=== PATIENT | male | born 1945 | race Caucasian/White ===

== ENCOUNTER → 2016-10-21 | Outpatient (CLI) | payer MEDICARE | LOC: GMAJ 12:01 | PROVIDERS: ATTEND Family Medicine | DX: E29.1 Testicular hypofunction (principal); E03.9 Hypothyroidism, unspecified ==

== ENCOUNTER → 2017-04-11 | Outpatient (CLI) | payer MEDICARE | LOC: GMAJ 10:34 | PROVIDERS: ATTEND Family Medicine | DX: E29.1 Testicular hypofunction (principal); E03.9 Hypothyroidism, unspecified ==

== ENCOUNTER → 2017-09-28 | Outpatient (CLI) | payer MEDICARE | LOC: GMAJ 11:31 | PROVIDERS: ATTEND Family Medicine | DX: E29.1 Testicular hypofunction (principal); E03.9 Hypothyroidism, unspecified; Z12.5 Encounter for screening for malignant neoplasm of prostate | CPT/HCPCS: 84403; 84443; G0103 ==

== ENCOUNTER 2017-11-14 12:00 | Day surgery (SDC) | payer MEDICARE ==
[~2017-11-14 12:00] MED LIST: TROP 1%/CYCLOPEN 1%/PHENYL 2% DROPS ONE
[2017-11-14] MEDS: PROPARACAINE 0.5% OPHTH SOL 15 ML BTTL RIGHT_EYE ONE ×2 (13:50→14:15)
[2017-11-14] MEDS ORDERED: MIDAZOLAM INJ 2 MG/2 ML VIAL ONE (13:51)
[2017-11-14] MEDS: TOBRAMYCIN SULF 0.3 % OPHT SOL 1 DROP RIGHT_EYE ONE ×2 (14:00→14:38)
[2017-11-14] MEDS ORDERED: BRIMONIDINE 0.2% OPHTH DROPS RIGHT_EYE ONE ×2 (14:28→14:38)
[2017-11-14] MEDS ORDERED: TOBRAMYCIN SULF 0.3 % OPHT SOL 1 DROP RIGHT_EYE ONE (14:28)
[2017-11-14] MEDS ORDERED: DEXAMETHASONE 0.1% OPHTH SOL 1 DROP RIGHT_EYE ONE ×2 (14:28→14:38)
[2017-11-14] MEDS ORDERED: LIDOCAINE 1% PF 2 ML AMP INJ ONE (14:58)
[2017-11-14 16:46] VITALS: BP 136/81; TEMP 98.2; O2SAT 95
== END 2017-11-14 15:25 | disposition home or self-care (01) ==
LOC: AMB 12:00
PROVIDERS: ATTEND Ophthalmology
DX: H25.11 Age-related nuclear cataract, right eye (principal); K21.9 Gastro-esophageal reflux disease without esophagitis; Z79.82 Long term (current) use of aspirin; Z79.899 Other long term (current) drug therapy
CPT/HCPCS: 00142; 66984; J2250

== ENCOUNTER 2017-11-28 05:20 | Day surgery (SDC) | payer MEDICARE ==
[2017-11-28] MEDS ORDERED: PROPARACAINE 0.5% OPHTH SOL 15 ML BTTL ONE (05:51)
[2017-11-28] MEDS ORDERED: TROP 1%/CYCLOPEN 1%/PHENYL 2% DROPS ONE (05:51)
[2017-11-28] MEDS ORDERED: MIDAZOLAM INJ 2 MG/2 ML VIAL ONE (09:35)
[2017-11-28] MEDS ORDERED: LIDOCAINE 1% PF 2 ML AMP INJ ONE (09:48)
[2017-11-28] MEDS ORDERED: DEXAMETHASONE 0.1% OPHTH SOL 1 DROP LEFT_EYE ONE ×2 (09:54→10:05)
[2017-11-28] MEDS ORDERED: BRIMONIDINE 0.2% OPHTH DROPS LEFT_EYE ONE ×2 (09:55→10:05)
[2017-11-28] MEDS ORDERED: TOBRAMYCIN SULF 0.3 % OPHT SOL 1 DROP LEFT_EYE ONE ×2 (09:55→10:05)
== END 2017-11-28 10:40 | disposition home or self-care (01) ==
LOC: AMB 05:20
PROVIDERS: ATTEND Ophthalmology
DX: H25.12 Age-related nuclear cataract, left eye (principal); Z79.82 Long term (current) use of aspirin; Z79.899 Other long term (current) drug therapy; Z88.0 Allergy status to penicillin; Z91.048 Other nonmedicinal substance allergy status; Z87.891 Personal history of nicotine dependence
CPT/HCPCS: 00142; 66984; J2250; V2787

== ENCOUNTER → 2017-12-01 | Outpatient (CLI) | payer MEDICARE ==
--- NOTE | 2017-12-02 09:42 | MRI ---
EXAM DESCRIPTION: Lumbar Spine w/o Contrast : Magnetic Resonance Imaging. CLINICAL HISTORY: LEFT SIDED SCIATICA COMPARISON: None. TECHNIQUE: Multiplanar, multiple standard sequences, non contrast MRI, lumbar spine. FINDINGS: L5-S1: Moderate disc space loss and desiccation. Posterior midline bright T2 signal and tiny bulge abutting the thecal sac. Mild canal narrowing. Minimal facet arthrosis bilaterally. Bilateral moderate foraminal narrowing. L4-5: Disc desiccation and grade 1 anterolisthesis. Posterior flavum ligament hypertrophy and facet arthrosis with AP canal diameter 7 mm. Mild canal narrowing on the left moderate on the right. Posterior broad-based 4 mm disc bulge. Bilateral subarticular recess narrowing. L3-4: Disc desiccation and disc space maintained. Posterior broad-based 4 mm disc bulge. Mild canal narrowing. Bilateral flavum ligament hypertrophy. Bilateral mild foraminal narrowing. L2-3: Disc desiccation disc space maintained. Minimal flavum ligament hypertrophy. Canal is patent. Bilateral foramina are patent. L1-2: Marked disc space loss and Modic type I endplate reactive changes with anterior disc bulging and endplate spurs. Schmorl's nodes in the endplates. Desiccated signal in the disc. Marrow edema extending into the central marrow at L1. Anterior soft tissue edema. Posterior broad-based 4 mm disc bulge and moderate canal narrowing with minimal flavum ligament hypertrophy. Marrow edema abutting the left posterior endplates. Bilateral disc bulge into the foramina with moderate narrowing; spur disc bulge on left With near stenosis T12-L1: Disc desiccation minimal disc space loss with no posterior bulging but bright T2 signal in the posterior disc margin. Posterior elements are unremarkable. Canal and foramina are patent. Conus terminates at this level. No scoliosis. Paravertebral soft tissues mildly prominent around the L1-2 disc space but otherwise age-related paraspinal muscle atrophy. Normal marrow signal in the remaining vertebral bodies and the posterior elements. Ts. Vertebral bodies are not compressed at any level. IMPRESSION: 1. Modic type I endplate reactive changes and acute spondylitis at L1-2 with marrow edema extending into the central and upper L1 vertebral body. Edema in the Schmorl's nodes and in the posterior left side endplates. Near stenosis of the left foramen. Anterior and anterolateral paraspinal soft tissue edema. Correlate for left L1 radiculopathy. Discitis not likely. Correlate for inflammatory process with ESR and C-reactive protein measurements. Correlate for recent trauma. 2. Moderate disc space loss L5-S1 bilateral moderate foraminal narrowing and minimal canal narrowing. Disc bulge. 3. Posterior broad-based L3-4 disc bulge with canal and foraminal narrowing. 4. Grade 1 anterolisthesis L4-5. Moderate central canal stenosis. Bilateral foraminal narrowing more on the right. Subarticular recess narrowing bilaterally. Correlate for L5 radiculopathy. Electronically signed by: Rajeev Butler MD 12/02/2017 9:40 AM CDT
== END ==
LOC: MRI 09:56
PROVIDERS: ATTEND Family Medicine
DX: M54.32 Sciatica, left side (principal); M51.26 Other intervertebral disc displacement, lumbar region

== ENCOUNTER → 2018-09-01 | Outpatient (CLI) | payer MEDICARE ==
--- NOTE | 2018-09-01 17:21 | CT ---
EXAM DESCRIPTION: Chest w/o Contrast CLINICAL HISTORY: 73 years Male, ACUTE EXACERBATION OF COPD COMPARISON: None available TECHNIQUE: Contiguous thin section axial images were obtained from the supraclavicular region to below the diaphragm level without the use of intravenous contrast. Sagittal and coronal reconstructions were reviewed. FINDINGS: The visualized thyroid gland appears grossly unremarkable. No enlarged axillary, supraclavicular, mediastinal or hilar lymphadenopathy. The heart size appears within normal limits. No pericardial effusion. Moderate atherosclerotic calcifications of the aortic arch noted. The tracheobronchial tree is patent. Review of the lung windows demonstrate moderate to severe emphysematous changes predominantly involving the upper lobes. No acute consolidation or pleural effusion. Multiple focal groundglass changes in the superior segment of the right lower lobe concerning for underlying infectious/inflammatory etiology. Bilateral biapical scarring is noted. No suspicious nodules or abnormal mass lesions identified. The esophagus appears grossly normal throughout its length. The visualized upper abdomen appears grossly unremarkable. Review of the bone windows demonstrate no acute osseous abnormality. IMPRESSION: 1. Multiple focal groundglass changes in the superior segment of right lower lobe concerning for underlying infection/pneumonia. No acute consolidation or pleural effusion. This exam was performed according to our departmental dose-optimization program, which includes automated exposure control, adjustment of the mA and/or kV according to patient size and/or use of iterative reconstruction technique. Electronically signed by: Chase Pugh MD 09/01/2018 5:18 PM ADJUNCT FACULTY FOR MEDICAL TERMINOLOGY
== END ==
LOC: CT 10:31
PROVIDERS: ATTEND Family Medicine
DX: J44.1 Chronic obstructive pulmonary disease with (acute) exacerbation (principal)

== ENCOUNTER → 2019-05-21 | Outpatient (CLI) | payer MEDICARE | LOC: GMAJ 10:52 | PROVIDERS: ATTEND Family Medicine | DX: E29.1 Testicular hypofunction (principal); E11.9 Type 2 diabetes mellitus without complications; E03.9 Hypothyroidism, unspecified; E78.2 Mixed hyperlipidemia ==

== ENCOUNTER → 2019-08-13 | Outpatient (CLI) | payer MEDICARE | LOC: GMAJ 10:45 | PROVIDERS: ATTEND Family Medicine | DX: Z12.5 Encounter for screening for malignant neoplasm of prostate (principal); E03.9 Hypothyroidism, unspecified; E11.9 Type 2 diabetes mellitus without complications; E78.00 Pure hypercholesterolemia, unspecified; E29.1 Testicular hypofunction | CPT/HCPCS: 84403; 84443; G0103 ==

== ENCOUNTER → 2019-12-18 | Outpatient (CLI) | payer MEDICARE | LOC: GMAJ 11:13 | PROVIDERS: ATTEND Family Medicine | DX: E03.9 Hypothyroidism, unspecified (principal); E11.9 Type 2 diabetes mellitus without complications; E78.00 Pure hypercholesterolemia, unspecified ==

== ENCOUNTER → 2020-02-06 | Outpatient (CLI) | payer MEDICARE ==
--- NOTE | 2020-02-06 19:28 | CT ---
EXAM: Chest w/Contrast CLINICAL HISTORY: PULMONARY NODULE COMPARISON STUDY: CT chest from September 01, 2018 TECHNICAL: Post contrast CT images were performed through the chest. Sagittal and coronal reconstructions were acquired. FINDINGS: Soft tissue or mediastinal windows demonstrate no mass or lymphadenopathy. The heart is not enlarged. The aorta is non-dilated. There is no sign of an aortic dissection. The pulmonary arterial system as imaged is negative. The limited images of the upper abdomen are negative. Pulmonary parenchymal windows show no mass, consolidation, interstitial pulmonary edema, or pleural effusion. Mild diffuse emphysematous changes are present. There are chronic appearing dependent fibrotic changes within the apices. There is severe degenerative disc changes at L1-2, unchanged. IMPRESSION: 1. Mild diffuse emphysematous changes of the lungs with no mass or nodule. No lymphadenopathy. This exam was performed according to our departmental dose-optimization program, which includes automated exposure control, adjustment of the mA and/or kV according to patient size and/or use of iterative reconstruction technique. Electronically signed by: Anatoly Trent MD 02/06/2020 7:27 PM CDT
== END ==
LOC: CT 14:40
PROVIDERS: ATTEND Family Medicine
DX: J43.9 Emphysema, unspecified (principal)

== ENCOUNTER 2020-04-07 05:51 | Day surgery (SDC) | payer MEDICARE ==
[2020-04-07] MEDS ORDERED: LIDOCAINE 1% 10 ML VIAL INJ ONE ×2 (07:28→10:19)
[2020-04-07] MEDS ORDERED: BUPIVACAINE 0.5% 30 ML VIAL INJ ONE ×2 (07:28→10:19)
[2020-04-07] MEDS ORDERED: BETAMETHASONE ACETATE/BETAMETH 6 MG/ML VIAL IM ONE ×2 (10:19→10:35)
== END 2020-04-07 11:00 | disposition home or self-care (01) ==
LOC: AMB 05:51
PROVIDERS: ATTEND Family Medicine Sports Medicine
DX: M47.896 Other spondylosis, lumbar region (principal); M51.36 Other intervertebral disc degeneration, lumbar region; M48.061 Spinal stenosis, lumbar region without neurogenic claudication; M54.5 Low back pain; M43.06 Spondylolysis, lumbar region; E11.9 Type 2 diabetes mellitus without complications; E78.2 Mixed hyperlipidemia; E78.00 Pure hypercholesterolemia, unspecified; J44.9 Chronic obstructive pulmonary disease, unspecified; E03.9 Hypothyroidism, unspecified; Z85.828 Personal history of other malignant neoplasm of skin; Z87.891 Personal history of nicotine dependence; Z88.0 Allergy status to penicillin; Z88.8 Allergy status to other drugs, medicaments and biological substances; Z79.899 Other long term (current) drug therapy; Z79.82 Long term (current) use of aspirin; Z79.84 Long term (current) use of oral hypoglycemic drugs; Z79.1 Long term (current) use of non-steroidal anti-inflammatories (NSAID)

== ENCOUNTER 2020-04-21 05:10 | Day surgery (SDC) | payer MEDICARE ==
[2020-04-21] MEDS ORDERED: LIDOCAINE 1% 10 ML VIAL INJ ONE ×2 (07:09→09:01)
[2020-04-21] MEDS ORDERED: BUPIVACAINE 0.5% 30 ML VIAL INJ ONE ×2 (07:09→09:02)
[2020-04-21] MEDS ORDERED: BETAMETHASONE ACETATE/BETAMETH 6 MG/ML VIAL IM ONE ×2 (09:05→10:22)
== END 2020-04-21 09:37 | disposition home or self-care (01) ==
LOC: AMB 05:10
PROVIDERS: ATTEND Family Medicine Sports Medicine
DX: M43.06 Spondylolysis, lumbar region (principal); M54.5 Low back pain; M47.896 Other spondylosis, lumbar region; E78.5 Hyperlipidemia, unspecified; J44.9 Chronic obstructive pulmonary disease, unspecified; E03.9 Hypothyroidism, unspecified; E11.9 Type 2 diabetes mellitus without complications; I65.29 Occlusion and stenosis of unspecified carotid artery; Z88.0 Allergy status to penicillin; Z88.8 Allergy status to other drugs, medicaments and biological substances; Z79.82 Long term (current) use of aspirin; Z79.84 Long term (current) use of oral hypoglycemic drugs; Z79.899 Other long term (current) drug therapy